=== PATIENT | male | born 1995 | race Two or more races ===

== ENCOUNTER 2018-04-13 16:52 | Emergency (ER) | payer MEDICAID, OTHER ==
[2018-04-13] MEDS ORDERED: TDAP ADULT 0.5 ML INJ (BOOSTRIX) IM ONE (17:07)
[2018-04-13] MEDS ORDERED: LET GEL TOPICAL 1 EA SYR TP ONE (17:14)
[2018-04-13] MEDS ORDERED: SKIN ADHESIVE (DERMABOND) 1 EACH TP ONE (17:17)
--- NOTE | 2018-04-13 17:31 | EDPHY ---
H & P Time Seen by Provider: 04/13/18 16:56 HPI/ROS: 23 yo M presents c/o cut with a hot box checker to his left palm. Review of systems As per HPI General no fever no chills no weakness HEENT no eye pain no eye discharge. No eye redness, no sore throat Respiratory no cough, no shortness of breath Cardiac no chest pain, no peripheral edema GI no abdominal pain, no diarrhea, no constipation, no nausea, no vomiting no flank pain, no hematuria, no dysuria Musculoskeletal no myalgias, no joint pain Heme no easy bruising, no easy bleeding Endo no polyuria, no polydipsia Skin no rashes, no pruritus Neuro no syncope, no dizziness, no headaches Psych is no suicidal ideation, no homicidal ideation Past Medical/Surgical History: Non contributory Social History: Smokes tobacco, denies alcohol or drug use Smoking Status: Current every day smoker Physical Exam: 23-year-old male alert and oriented no acute distress nontoxic appearance afebrile Alert and oriented in no acute distress nontoxic appearance, afebrile Atraumatic normocephalic Neck no JVD Lungs clear to auscultation, no respiratory distress Heart regular rate and rhythm Extremities no cyanosis clubbing edema Left hand full range of motion good capillary refill pulses intact left palm 3 cm non gaping laceration just through dermis no exposed muscle Able to make a fist Constitutional: Initial Vital Signs Temperature (C) 37.0 C 04/13/18 16:56 Heart Rate 95 04/13/18 16:56 Respiratory Rate 18 04/13/18 16:56 Blood Pressure 139/82 H 04/13/18 16:56 O2 Sat (%) 94 04/13/18 16:56 O2 Delivery Mode Room Air Allergies/Adverse Reactions: No Known Allergies Allergy (Unverified 04/13/18 16:56) Home Medications: Medication Instructions Recorded NK [No Known Home Meds] 04/13/18 Medical Decision Making Procedures: Procedure note-laceration Let applied for 15 min. The wound was cleansed and irrigated with copious amounts of saline. A skin adhesive, Dermabond was used to close the wound Patient tolerated procedure well. ED Course/Re-evaluation: Patient seen and evaluated for left hand laceration Impression Left palmar laceration 3 cm simple, non gaping Dermabond adhesive used for repair Plan Discharge Follow-up as needed Differential Diagnosis: Differential diagnosis considered but not limited to Hand laceration-simple, hand laceration-complex - Data Points Medications Given: Discontinued Medications Diphtheria/Tetanus/Acell Pertussis (Boostrix) 0.5 ml IM .ONCE ONE Stop: 04/13/18 17:08 Last Admin: 04/13/18 17:18 Dose: 0.5 ml Tetracaine/Epinephrine/Lidocaine (Let Gel Topical) 1 ea TP EDNOW ONE Stop: 04/13/18 17:15 Last Admin: 04/13/18 17:22 Dose: 1 ea Departure - Departure Disposition: Home, Routine, Self-Care Clinical Impression: Laceration of left hand Condition: Good Instructions: Laceration (ED), Skin Adhesive Care (ED) Referrals: NONE *PRIMARY CARE P,. [Primary Care Provider] - As per Instructions
[2018-04-13 18:09] VITALS: BP 110/70
== END 2018-04-13 18:10 | disposition home or self-care (01) ==
LOC: CED 16:52
PROC: 0HQGXZZ Repair Left Hand Skin, External Approach (ICD-10-PCS; principal; 2018-04-13)
DX: S61.412A Laceration without foreign body of left hand, initial encounter (principal); F17.200 Nicotine dependence, unspecified, uncomplicated; Z23 Encounter for immunization; W26.0XXA Contact with knife, initial encounter; Y92.9 Unspecified place or not applicable; Y93.9 Activity, unspecified; Y99.9 Unspecified external cause status